=== PATIENT | male | born 1955 | race Caucasian/White ===

== ENCOUNTER 2018-07-04 20:03 | Inpatient (IN) | payer OTHER ==
[~2018-07-04] VITALS: Ht 180.3 cm; Wt 68.2 kg
[2018-07-04 20:42] LABS: BASOPHILS ABSOLUTE AUTO 0.07 K/mm3 (0.00-0.23); BASOPHILS PERCENT AUTO 1 % (0-2); EOSINOPHILS ABSOLUTE AUTO 0.06 K/mm3 (0.00-0.68); EOSINOPHILS PERCENT AUTO 1 % (0-6); Hematocrit 53.5 % (37.0-53.0); Hemoglobin 18.6 g/dL (13.5-17.5); IMMATURE GRAN PERCENT AUTO 1 % (0-1); LYMPHOCYTES ABSOLUTE AUTO 3.37 K/mm3 (0.84-5.20); LYMPHOCYTES PERCENT AUTO 34 % (21-46); MONOCYTES PERCENT AUTO 7 % (4-13); Mean Corpuscular HGB 30.8 pg (26.0-34.0); Mean Corpuscular HGB Conc 34.8 g/dL (31.5-36.5); Mean Corpuscular Volume 89 fL (80-100); Mean Platelet Volume 11.5 fL (9.1-12.4); NEUTROPHILS ABSOLUTE AUTO 5.57 K/mm3 (1.96-9.15); NEUTROPHILS PERCENT AUTO 57 % (41-73); Platelet Count 169 K/mm3 (150-400); RDW Coefficient Variation 11.9 % (11.7-14.2); RDW Standard Deviation 38.9 fL (35.1-46.3); Red Blood Cell Count 6.03 M/mm3 (4.30-5.90); White Blood Cell Count 9.87 K/mm3 (4.00-11.30)
[2018-07-04 21:01] LABS: Alanine Aminotransfer (ALT/SGP 39 U/L (12-78); Albumin, Blood 3.7 g/dL (3.4-5.0); Alk Phos 130 U/L (50-136); Anion Gap 13 mmol/L (6-16); Aspartate Aminotrans (AST/SGOT 20 U/L (12-37); Bilirubin, Total 0.4 mg/dL (0.1-1.0); Blood Urea Nitrogen 24 mg/dL (8-24); Bun/Creatinine Ratio 18.8 (12.0-20.0); CO2, Blood 25 mmol/L (21-32); Calcium, Blood 9.5 mg/dL (8.5-10.1); Chloride, Blood 91 mmol/L (98-108); Creatinine, Blood 1.28 mg/dL (0.60-1.20); Globulin, Blood 3.8 g/dL (2.2-4.0); Glomerular Filtration Rate >60 (60-); Glucose, Blood 568 mg/dL (70-99); Potassium, Blood 4.1 mmol/L (3.5-5.5); Sodium, Blood 129 mmol/L (136-145); Total Protein, Blood 7.5 g/dL (6.4-8.2)
[2018-07-04] MEDS ORDERED: LISI5 PO (22:02)
[2018-07-04] MEDS ORDERED: ROSU10TA PO (22:02)
[2018-07-04] MEDS ORDERED: GLIM4 PO (22:02)
[2018-07-04] MEDS ORDERED: Aspirin EC81 MG PO (22:03)
[2018-07-05 00:51] LABS: Free Thyroxine 1.17 ng/dL (0.70-1.60)
[2018-07-05 00:52] LABS: Triiodothyronine, Free 3.11 pg/mL (2.18-3.98)
--- NOTE | 2018-07-05 00:57 | NUR ---
ASSUMING CARE RECEIVED PT REPORT FROM AGNIESZKA HAGEN IN THE ER. PT IS BEING ADMITTED DUE TO A 3RD DEGREE HEART BLOCK. PT TRANSFERED TO ICU VIA STRETCHER ESCORTED BY SWAGER OPERATOR. PT IS ALERT AND ORIENTED AT THE TIME OF ARRIVAL TO THE ICU. PT HR IS IN THE LOW 40'S, BP IS IN THE 180-190'S. PT PLACED ON ICU MONITOR. PT IS IN 3RD DEGREE HEART BLOCK. PT DENIES FATIGUE, SOB, OR LIGHTHEADEDNESS AT THIS TIME. NS AT 100ML/HR STARTED SHORTLY AFTER THE TIME OF ARRIVAL TO UNIT. PT IS ON ROOM AIR WITH SPO2 IN THE MID 90'S. PT LUNGS EXHIBIT INSPIRATORY WHEEZES. PT IS NPO AFTER MIDNIGHT DUE TO POSSIBLE PACER PLACEMENT IN THE AM. ASSUMED CARE OF PT AT THE TIME OF ARRIVAL TO UNIT. WILL CONTINUE TO MONITOR PT.
[2018-07-05 03:35] LABS: Hematocrit 51.3 % (37.0-53.0); Hemoglobin 17.9 g/dL (13.5-17.5); Mean Corpuscular HGB 30.3 pg (26.0-34.0); Mean Corpuscular HGB Conc 34.9 g/dL (31.5-36.5); Mean Corpuscular Volume 87 fL (80-100); Mean Platelet Volume 11.5 fL (9.1-12.4); Platelet Count 151 K/mm3 (150-400); RDW Coefficient Variation 11.8 % (11.7-14.2); White Blood Cell Count 8.85 K/mm3 (4.00-11.30)
[2018-07-05 03:50] LABS: International Normalized Ratio 0.96; Prothrombin Time Results 10.2 Sec (9.7-11.5)
[2018-07-05 03:57] LABS: Anion Gap 9 mmol/L (6-16); Blood Urea Nitrogen 18 mg/dL (8-24); Bun/Creatinine Ratio 18.2 (12.0-20.0); CO2, Blood 28 mmol/L (21-32); Calcium, Blood 8.6 mg/dL (8.5-10.1); Chloride, Blood 101 mmol/L (98-108); Creatinine, Blood 0.99 mg/dL (0.60-1.20); Glomerular Filtration Rate >60 (60-); Glucose, Blood 220 mg/dL (70-99); Potassium, Blood 3.2 mmol/L (3.5-5.5); Sodium, Blood 138 mmol/L (136-145); Troponin I 0.058 ng/mL (0.000-0.040)
--- NOTE | 2018-07-05 06:16 | NUR ---
SHIFT SUMAMRY NOTE PT HAS REMAINED ALERT AND ORIENTED THROUGH THE NIGHT WHILE AWAKE. PT HAS SLEPT THROUGH MOST OF THE NIGHT AFTER ADMISSION COMPLETE. PT HR HAS MAINTAINED IN THE 39-42 RANGE THROUGH THE ENTIRE NIGHT AFTER ARRIVAL TO THE UNIT. PT HAS REMAINED IN A 3RD DEGREE HEART BLOCK THROUGH THE NIGHT. PT BP HAS BEEN NOTED TO BE HYPERTENSIVE IN THE 160-200 RANGE. WHILE AWAKE, AND IN THE 110-120 RANGE WHILE ASLEEP. PT PROVIDED 10MG HYDRALAZINE X1 THROUGH THE NIGHT FOR SBP GREATER THAN 200 PER ORDERS. PT HAS NOT REPORTED ANY LIGHT HEADEDNESS THROUGH THE NIGHT AND APPEARS TO BE ASYMPTOMATIC WITH BRADYCARDIA. PT HAS HAD ZOLL PADS IN PLACE A PRECAUTION. PT HAS REMAINED NPO SINCE MIDNIGHT. PT CBG HAS DECREASED TO LESS THAN 200 AND 0600 DOSE OF INSULIN COVERAGE WAS NOT INDICATED. PT HAS REMAINED ON ROOM AIR THROUGH THE NIGHT WITH SPO2 MAINTAINING IN THE MID 90'S. [facility] NURSE.
--- NOTE | 2018-07-05 07:42 | NUR ---
ASSUMED CARE PT. ALERT AND ORIENTED. PT DENIES ANY CHEST PAIN OR PRESSURE. PT. VSS THIS AM. DENIES DIZZINESS OR SOB AT THIS TIME. CURRENTLY ON RA. PT. RESTING QUIETLY IN BED, NO COMPLAINTS. PT REMAINS NPO. CALL LIGHT IN REACH.
--- NOTE | 2018-07-05 08:03 | NUR ---
CARDIOLOGY IN TO SEE PT AND DISCUSS PACEMAKER PLACEMENT
--- NOTE | 2018-07-05 09:03 | NUR ---
PT TO WALL CRANE OPERATOR AT THIS TIME.
--- NOTE | 2018-07-05 10:35 | NUR ---
Echocardiogram completed.
--- NOTE | 2018-07-05 12:21 | NUR ---
PT ARRIVES BACK FROM HISTOLOGY ASSISTANT AT THIS TIME TR BAND IN PLACE TO RIGHT WRIST. WAS PLACED AT 1001 WITH 9CC OF AIR. NO INTERVENTIONS DONE WITH ANGIOGRAM. NO SWELLING, OOZING, OR BRUISING NOTED UNDER TR BAND. PT ALSO HAS DRESSING IN PLACE TO LEFT CHEST WALL. PER HISTOLOGY ASSISTANT STAFF DRESSING TO REMAIN IN PLACE UNTIL PT FOLLOW UP APPOINTMENT. DRESSING HAS SMALL AMOUNT OF RED DRAINAGE TO CORNER BUT CURRENTLY INTACT. PT VSS.
--- NOTE | 2018-07-05 14:29 | NUR ---
PACEMAKER INSTRUCTIONS PROVIDED TO PT.
--- NOTE | 2018-07-05 14:53 | NUR ---
PT TO XRAY TR BAND SLOWLY DEFLATED, OOZING NOTED WITH 2CC DEFLATION, 2CC REINSTILLED, OZZING STOPPED AT THIS TIME. WILL CONTINUE TO MONITOR SITE.
--- NOTE | 2018-07-05 17:35 | NUR ---
SHIFT SUMMARY PT. REMAINS ALERT AND ORIENTED. PT. CONTINUES WITH ARM BOARD AND TR BAND TO RIGHT WRIST. SLOWLY DEFLATING TR BAND DUE TO OOZING. PT. NEEDS REMINDING TO NOT USE RIGHT ARM OR LEFT FOR REPOSITIONING SELF IN BED. BANDAGE REMAINS IN PLACE TO LEFT CHEST WALL. PT EDUCATED ON POST PACEMAKER PLACEMENT THIS SHIFT; HOWEVER WOULD BE GOOD TO REVIEW AGAIN TOMORROW. PT. DENIES PAIN T/O SHIFT. NADN. REPORT TO ONCOMING RN.
--- NOTE | 2018-07-05 21:06 | NUR ---
ASSUMED CARE PT IS A&OX4 AND REPORTS PAIN 5/10 AT PACEMAKER SITE. HE HAS A CURRENT GTT OF NS AT 100ML/HR.
[2018-07-06 04:17] LABS: Anion Gap 7 mmol/L (6-16); Blood Urea Nitrogen 18 mg/dL (8-24); Bun/Creatinine Ratio 17.6 (12.0-20.0); CO2, Blood 25 mmol/L (21-32); Chloride, Blood 102 mmol/L (98-108); Creatinine, Blood 1.02 mg/dL (0.60-1.20); Glomerular Filtration Rate >60 (60-); Glucose, Blood 240 mg/dL (70-99); Potassium, Blood 4.1 mmol/L (3.5-5.5); Sodium, Blood 134 mmol/L (136-145)
--- NOTE | 2018-07-06 06:16 | NUR ---
SHIFT SUMMARY PT SLEPT THROUGH THE NIGHT ONLY AWAKENING ONCE FOR PAIN MEDICATION. PT IS ALERT AND ORIENTED X 4. TR BAND WAS REMOVED BEFORE 0000 AND HAS BEEN C/D/I ALL NIGHT. PT IS RECIEVING LR AT 75ML.
--- NOTE | 2018-07-06 07:20 | NUR ---
START OF SHIFT NOTE: PATIENT IS AWAKE AND TALKING ON PHONE, ALERT AND ORIENTED, LUNG SOUNDS CLEAR, PATIENT IS IN A PACED RHYTHM AT THIS TIME, PPM PLACED YESTERDAY, DANYELL CHEST INCISION COVERED WITH GAUZE AND TEGADERM, C/D/I, NO DRAINAGE NOTED, PATIENT STATES "THE AREA IS SORE", PPM STREET DEPARTMENT DISPATCHER IN TO CHECK PPM, ARM BOARD ON RIGHT WRIST D/T HEART CATH PROCEDURE YESTERDAY, TR BAND REMOVED, OPSITE IN PLACE, NO DRAINAGE OR OOZING NOTED, PATIENT INSTRUCTED TO KEEP WRIST STRAIGHT AND IS COMPLIANT AND COOPERATIVE, ABLE TO WIGGLE FINGERS ON RIGHT HAND, GOOD SENSATION, FINGERS ARE WARM AND PINK, BOWEL TONES ARE PRESENT, USES URINAL APPROPRIATELY, PULSES ARE PRESENT AND STRONG IN LE'S, PATIENT IS AFEBRILE AND DENIES PAIN, CALL LIGHT IN REACH, WILL CONTINUE TO MONITOR.
--- NOTE | 2018-07-06 13:13 | NUR ---
DR. LENNON IN TO SEE PATIENT, OK FOR PATIENT TO DISCHARGE HOME, AWAITING DISCHARGE ORDERS FROM DR. ALARCON.
--- NOTE | 2018-07-06 14:32 | NUR ---
PATIENT RECEIVED DISCHARGE INSTRUCTIONS WRITTEN AND VERBAL, WERE EXPLAINED, PATIENT VERBALIZED UNDERSTANDING, ALL QUESTIONS ANSWERED, LITERATURE AND INFORMATION GIVEN, PIV'S REMOVED, PATIENT TOLERATED WELL, DRESSED SELF, ALL BELONGINGS WITH PATIENT, PATIENT LEFT VIA W/C THROUGH ER AT 1445.
--- NOTE | 2018-07-06 17:01 | NUR ---
PATIENT LEFT BEHIND APPOINTMENT CARD AND INSTRUCTIONS, WERE MAILED TO PATIENT AFTER WE CALLED HIS HOME AND LEFT A MESSAGE.
== END 2018-07-06 14:44 | disposition home or self-care (01) | DRG 244 ==
LOC: ER 20:03 → ICUE 22:06 → ICUW 22:06 → ICUE 22:40
PROVIDERS: Internal Medicine Cardiovascular Disease; Nurse Practitioner Acute Care; Physician Assistant; ADMIT Internal Medicine
PROC: 0JH606Z Insertion of Pacemaker, Dual Chamber into Chest Subcutaneous Tissue and Fascia, Open Approach (ICD-10-PCS; principal; 2018-07-05)
PROC: 02HK3JZ Insertion of Pacemaker Lead into Right Ventricle, Percutaneous Approach (ICD-10-PCS; 2018-07-05)
PROC: B211YZZ Fluoroscopy of Multiple Coronary Arteries using Other Contrast (ICD-10-PCS; 2018-07-05)
DX: I44.2 Atrioventricular block, complete (principal); I10 Essential (primary) hypertension; E78.5 Hyperlipidemia, unspecified; F17.210 Nicotine dependence, cigarettes, uncomplicated; R79.89 Other specified abnormal findings of blood chemistry; R00.1 Bradycardia, unspecified; I25.10 Atherosclerotic heart disease of native coronary artery without angina pectoris; E11.65 Type 2 diabetes mellitus with hyperglycemia; Z79.4 Long term (current) use of insulin
CPT/HCPCS: 33208; 36415; 71045; 71046; 80048; 80053; 82947; 83735; 84436; 84439; 84443; 84481; 84484; 85025; 85027; 85610; 93005; 93010; 93306; 93458; 94640; 99152; 99153; 99285-25; C1769; C1785; C1894; C1898; J0360; J0690; J1644; J1650; J1815; J2250; J3010; J7030; J7040; Q9967

== ENCOUNTER 2019-03-12 10:07 | Day surgery (SDC) | payer OTHER ==
[~2019-03-12] VITALS: Ht 182.9 cm; Wt 74.8 kg
[~2019-03-12 10:07] MED LIST: Aspirin EC81 MG PO; GLIM4 PO; INSULANPEN SC; LISI5 PO; ROSU10TA PO
--- NOTE | 2019-03-12 10:57 | NUR ---
Ambulatory in Day Surgery. Patient states colon prep results clear. History, Chart, Medications and Allergies reviewed before start of procedure. Lungs clear T/O to Auscultation. Patient confirms NPO status and agrees with scheduled surgery. Patient States Post-Procedure ride home has been arranged.
--- NOTE | 2019-03-12 11:32 | NUR ---
03/12/19 1132 MY BANG History, Chart, Medications and Allergies reviewed before start of procedure.3-LEAD EKG REVIEWED WITH PHYSICIAN PRIOR TO START OF PROCEDURE.O2 VIA N/C INTACT THROUGHOUT SEDATION/PROCEDURE. MONITOR INTACT WITH CONTINUOUS PULSE OXIMETRY AND INTERMITTENT BP.PATIENT DETERMINED TO BE ASA APPROPRIATE FOR PROPOFOL SEDATION PRIOR TO START OF PROCEDURE BY
--- NOTE | 2019-03-12 12:16 | NUR ---
PT TO STEP. DENIES PAIN. STATES HE IS PASSING AIR.
--- NOTE | 2019-03-12 12:41 | NUR ---
WRITTEN AND VERBAL D/C INSTRUCTIONS GIVEN TO PT WITH STATED UNDERSTANDING.
--- NOTE | 2019-03-12 12:52 | NUR ---
PT READY TO GO HOME. WAITING FOR RIDE.
--- NOTE | 2019-03-12 13:01 | NUR ---
PT REFUSED W/C RIDE. AMBULATED WITH PT OUT TO CAR.
== END 2019-03-12 13:02 | disposition home or self-care (01) ==
LOC: ORSCMMR 10:07 → ORD 11:00 → ORSCMMR 11:00
PROVIDERS: Internal Medicine Gastroenterology
PROC: 0DBK8ZX Excision of Ascending Colon, Via Natural or Artificial Opening Endoscopic, Diagnostic (ICD-10-PCS; principal; 2019-03-12 11:00)
PROC: 0DBL8ZX Excision of Transverse Colon, Via Natural or Artificial Opening Endoscopic, Diagnostic (ICD-10-PCS; principal; 2019-03-12 11:00)
PROC: 0DBN8ZX Excision of Sigmoid Colon, Via Natural or Artificial Opening Endoscopic, Diagnostic (ICD-10-PCS; principal; 2019-03-12 11:00)
PROC: 0DBH8ZX Excision of Cecum, Via Natural or Artificial Opening Endoscopic, Diagnostic (ICD-10-PCS; principal; 2019-03-12 11:00)
DX: Z12.11 Encounter for screening for malignant neoplasm of colon (principal); Z86.010 Personal history of colon polyps; D12.5 Benign neoplasm of sigmoid colon; D12.0 Benign neoplasm of cecum; D12.2 Benign neoplasm of ascending colon; D12.3 Benign neoplasm of transverse colon; K63.5 Polyp of colon; K57.30 Diverticulosis of large intestine without perforation or abscess without bleeding; E11.9 Type 2 diabetes mellitus without complications; E03.9 Hypothyroidism, unspecified; Z79.4 Long term (current) use of insulin; Z79.82 Long term (current) use of aspirin
CPT/HCPCS: 82947; 88305; J2704; J7120

== ENCOUNTER 2022-04-18 16:33 | Inpatient (IN) | payer OTHER ==
[~2022-04-18] VITALS: Ht 182.9 cm; Wt 83.9 kg
[2022-04-18 17:26] LABS: BASOPHILS ABSOLUTE AUTO 0.06 K/mm3 (0.00-0.23); BASOPHILS PERCENT AUTO 1 % (0-2); EOSINOPHILS ABSOLUTE AUTO 0.06 K/mm3 (0.00-0.68); EOSINOPHILS PERCENT AUTO 1 % (0-6); Hematocrit 50.1 % (37.0-53.0); IMMATURE GRAN ABSOLUTE AUTO 0.02 K/mm3 (0.00-0.10); IMMATURE GRAN PERCENT AUTO 0 % (0-1); LYMPHOCYTES ABSOLUTE AUTO 2.61 K/mm3 (0.84-5.20); LYMPHOCYTES PERCENT AUTO 31 % (21-46); MONOCYTES ABSOLUTE AUTO 0.59 K/mm3 (0.16-1.47); MONOCYTES PERCENT AUTO 7 % (4-13); Mean Corpuscular HGB 29.9 pg (26.0-34.0); Mean Corpuscular HGB Conc 33.9 g/dL (31.5-36.5); Mean Corpuscular Volume 88 fL (80-100); Mean Platelet Volume 9.8 fL (9.1-12.4); NEUTROPHILS ABSOLUTE AUTO 4.98 K/mm3 (1.96-9.15); NEUTROPHILS PERCENT AUTO 60 % (41-73); Platelet Count 212 K/mm3 (150-400); RDW Coefficient Variation 12.9 % (11.7-14.2); RDW Standard Deviation 41.7 fL (35.1-46.3); Red Blood Cell Count 5.69 M/mm3 (4.30-5.90); White Blood Cell Count 8.32 K/mm3 (4.00-11.30)
[2022-04-18 18:06] LABS: Albumin, Blood 4.1 g/dL (3.4-5.0); Albumin/Globulin Ratio 1.1 (0.8-1.8); Bilirubin, Total 0.4 mg/dL (0.1-1.0); Bun/Creatinine Ratio 15.4 (12.0-20.0); Calcium, Blood 9.9 mg/dL (8.5-10.1); Creatinine, Blood 1.49 mg/dL (0.60-1.20); Globulin, Blood 3.8 g/dL (2.2-4.0); Total Protein, Blood 7.9 g/dL (6.4-8.2)
[2022-04-18] MEDS ORDERED: OZEMPIC2 MG/0.75 SC (21:31)
--- NOTE | 2022-04-18 23:20 | NUR ---
NOTIFIED OF 5 SEC PAUSE, NO NEW ORDERS AT THIS TIME, PT IS AWAKE, ALERT & ASYMPTOMATIC.
[2022-04-19 04:19] LABS: BASOPHILS ABSOLUTE AUTO 0.06 K/mm3 (0.00-0.23); BASOPHILS PERCENT AUTO 1 % (0-2); EOSINOPHILS ABSOLUTE AUTO 0.13 K/mm3 (0.00-0.68); EOSINOPHILS PERCENT AUTO 2 % (0-6); Hematocrit 44.2 % (37.0-53.0); Hemoglobin 15.3 g/dL (13.5-17.5); IMMATURE GRAN ABSOLUTE AUTO 0.02 K/mm3 (0.00-0.10); IMMATURE GRAN PERCENT AUTO 0 % (0-1); LYMPHOCYTES ABSOLUTE AUTO 3.48 K/mm3 (0.84-5.20); LYMPHOCYTES PERCENT AUTO 41 % (21-46); MONOCYTES ABSOLUTE AUTO 0.74 K/mm3 (0.16-1.47); MONOCYTES PERCENT AUTO 9 % (4-13); Mean Corpuscular HGB 30.4 pg (26.0-34.0); Mean Corpuscular HGB Conc 34.6 g/dL (31.5-36.5); Mean Corpuscular Volume 88 fL (80-100); NEUTROPHILS ABSOLUTE AUTO 4.07 K/mm3 (1.96-9.15); NEUTROPHILS PERCENT AUTO 48 % (41-73); Platelet Count 186 K/mm3 (150-400); RDW Coefficient Variation 12.9 % (11.7-14.2); RDW Standard Deviation 41.6 fL (35.1-46.3); Red Blood Cell Count 5.03 M/mm3 (4.30-5.90)
[2022-04-19 04:51] LABS: Albumin, Blood 3.2 g/dL (3.4-5.0); Bilirubin, Total 0.5 mg/dL (0.1-1.0); Bun/Creatinine Ratio 16.8 (12.0-20.0); Calcium, Blood 8.7 mg/dL (8.5-10.1); Creatinine, Blood 1.43 mg/dL (0.60-1.20); Globulin, Blood 3.3 g/dL (2.2-4.0); Potassium, Blood 4.1 mmol/L (3.5-5.5); Total Protein, Blood 6.5 g/dL (6.4-8.2)
--- NOTE | 2022-04-19 06:39 | NUR ---
SUMMARY PT CONTINUES TO BE ASYMPTOMATIC TO FLUCTUATIONS IN HR, HR AVERAGE OF 37 BPM WHILE SLEEPING, 3RD DEGREE BLOCK REPORTED BY WOOD REPATCHER, EPISODES OF 5 SEC PAUSES NOTED, BP REMAINS WNL, DENIES CP/PRESSURE, STATES HE "FEELS THE SAME I DID WHEN I CAME IN", PT IS ON RA SPO2 >96%, NS INFUSING @ 75 ML/HR, PT HAS BEEN NPO SINCE MIDNIGHT, VOIDING WNL, ZOLL IS AT BEDSIDE, CALL LIGHT IN REACH, PT IS CURRENTLY AWAKE AND TALKING TO HR CENTER NURSE, WCTM & REPORT TO DAY SHIFT RN.
--- NOTE | 2022-04-19 07:20 | NUR ---
INITIAL ASSESSMENT: Patient is awake lying in bed watching TV, pacemaker RN at bedside interrogating patients pacemaker. Initially the patients pacemaker was firing but as the night went on it is firing less. He is alert and oriented and denies pain at this time. He states he is not dizzy right now, at home he was dizzy getting up but once he was "up and moving around." HR irreg, he is in a 3rd degree heart block with a rate in the 30s, blood pressure stable. No chest pain and shortness of breath. LS DIM and coarse with some EXP wheezing, he is low to mid 90s on RA. BT+. PPP. He has a healing wound on the back of his right arm. He denies other needs at this time. Call light in reach.
--- NOTE | 2022-04-19 10:00 | NUR ---
Update: Dr. Bartlett is at the bedside along with the [employer] REP, they have their interrogation machine hooked up to the patient and are adjusting settings. Dr. Bartlett is explaining to the patient he will need to be transferred to another facility to have his pacemaker lead replaced, he explained to the patient that his ventricular pacemaker lead is pinched or fractured. Dr. Bartlett is going to make some phone calls to find the patient an accepting facility.
--- NOTE | 2022-04-19 18:08 | NUR ---
Summary: Patient has been alert and oriented x4 T/O the shift, he is hard of hearing. He was admitted for pacer malfunction, his ventricular lead is kinked or frayed- he needs to be transferred to have this lead changed out-we are waiting for a bed assignment at [facility]. He has not C/O CP, SOB or dizziness this shift. He did state that when he was active at home he would be dizzy shortly after getting up but once he was moving around it was okay. He has been in a 3 degree heart block T/O the shift with rates from 20s-40s. His pacemaker was initially providing some support but slowly started working less, the pacemaker rep was able to adjust some of the pacer settings so the patients lower rate does not go below 30. Blood pressure has been stable. BT+. PPP. He has a small wound to the back of his right arm that is scabbed over. He has been bed rest for the majority of my shift. He was able to get to the bedside commode once this shift without any difficulty and have a BM. Pacer pads are in place and the Zoll is at the bedside if needed. No other changes this shift, will report to oncoming RN.
--- NOTE | 2022-04-19 18:29 | NUR ---
REPORT GIVEN TO CABRERA AT [facility], TRANSPORT SHOULD BE HERE IN THE NEXT 20 MIN.
== END 2022-04-19 19:18 | disposition short-term general hospital (02) | DRG 315 ==
LOC: ER 16:33 → PCU 18:39
PROVIDERS: Physician Assistant; ADMIT Internal Medicine
DX: T82.118A Breakdown (mechanical) of other cardiac electronic device, initial encounter (principal); I44.2 Atrioventricular block, complete; E78.5 Hyperlipidemia, unspecified; E11.22 Type 2 diabetes mellitus with diabetic chronic kidney disease; N18.9 Chronic kidney disease, unspecified; F17.210 Nicotine dependence, cigarettes, uncomplicated; I12.9 Hypertensive chronic kidney disease with stage 1 through stage 4 chronic kidney disease, or unspecified chronic kidney disease; R00.1 Bradycardia, unspecified; K46.9 Unspecified abdominal hernia without obstruction or gangrene; Z96.651 Presence of right artificial knee joint; Z98.890 Other specified postprocedural states; Z79.899 Other long term (current) drug therapy; Z79.811 Long term (current) use of aromatase inhibitors; Z79.82 Long term (current) use of aspirin; Z79.4 Long term (current) use of insulin; Z88.8 Allergy status to other drugs, medicaments and biological substances
CPT/HCPCS: 36415; 71046; 80053; 82947; 85025; 93005; 93010; 93280; 93306; 99285-25; A9270; G0378; J1815; J7030